=== PATIENT | male | born 1985 | race African-American/Black ===

== ENCOUNTER 2021-01-06 11:34 | Emergency (ER) | payer OTHER, SELFPAY ==
--- NOTE | ~2021-01-06 | XR_ITS ---
EXAMINATION: XR CHEST CLINICAL INFORMATION: Cough COMPARISON: March 01, 2018 TECHNIQUE: AP portable view of the chest was obtained. FINDINGS: No significant abnormality is noted involving the heart, lungs, mediastinum, bony thorax or soft tissues. XR/XR chest 1V IMPRESSION: No acute disease.
[2021-01-06 11:41] VITALS: BP 135/86; PULSE 74; RESP 18; TEMP 37.1; O2SAT 99; BMI 44.1
--- NOTE | 2021-01-06 12:41 | ED.GENADULT ---
HPI - General Adult General Chief complaint: General Medical Stated complaint: flu like symptoms Time Seen by Provider: 01/06/21 11:50 Source: patient Mode of arrival: ambulatory Limitations: no limitations History of Present Illness HPI narrative: 35 y/o male presenting with 1 week of feeling unwell. He reports fatigue, generalized weakness, headaches, & dry cough. He had a negative COVID test at the start of his symptoms. He works for the [email or web address] and has had sick contacts but none with known COVID-19. He denies SOB, chest pain, difficulty breathing, abdominal pain, N/V/D. His appetite is poor. MD complaint: COVID symptoms Onset (ago): week(s) (1) Location: head, chest and back Radiation: non-radiation Severity: moderate Quality: aching Pain Consistency: constant Relieving factors: medication and rest Exacerbating factors: movement Associated symptoms: cough, fever/chills, headaches, loss of appetite and malaise Treatments prior to arrival: none Related Data Allergies Allergy/AdvReac Type Severity Reaction Status Date / Time SEASONAL ALLERGIES Allergy Severe ASTHMA Uncoded 07/29/20 16:22 REACTION DIFFI BREATHING. Shellfish Allergy Severe THROAT Uncoded 07/29/20 16:22 SWELLING Review of Systems Review of Systems: Constitutional: No Fever, +Chills ENT/Mouth: + sore throat (dry, scratchy), No Rhinorrhea, No Swallowing Difficulty Eyes: No Eye Pain, No Swelling, No Redness Cardiovascular: No Chest Pain, No SOB, No Orthopnea, No Edema Respiratory: + Cough, No Sputum, No Wheezing, No dyspnea Gastrointestinal: No Nausea, No Vomiting, No Diarrhea, No abdominal Pain, No Hematochezia, No Melena Genitourinary: No Dysuria, No Urinary Frequency, No Hematuria Musculoskeletal: + joint pain, + Myalgias Skin: No Skin Lesions, No rash Neuro: + Weakness, No Numbness, No Dizziness, + Headache Psych: No Anxiety/Panic, No Depression Heme/Lymph: No Bruising, No Lymphadenopathy Endocrine: No Polyuria, No Polydipsia PMFSH Past Medical History Attestation statement: The following information was validated with the patient. Medical History Asthma Social History Social History Alcohol intake: never Smoking Status: Current some day smoker Use of substances other than those prescribed or required for medical reasons: No Advance Directives: No Advance Directives Information Provided: No Physical Exam Vital Signs: Vital Signs: Last Vital Signs Temp 98.8 F 01/06/21 11:41 Pulse 74 01/06/21 11:41 Resp 18 01/06/21 11:41 BP 135/86 01/06/21 11:41 Pulse Ox 99 01/06/21 11:41 Body Mass Index 44.1 Appearance: Alert. Oriented X3. No acute distress. Eyes: Pupils equal, round and reactive to light. ENT: Pharynx normal. Neck: Normal inspection. Neck supple. CVS: Normal heart rate and rhythm. Pulses normal. Respiratory: No respiratory distress. Breath sounds normal. Abdomen: Obese, soft and non-tender. +BS x4 Skin: Skin warm and dry. Normal skin color. Normal skin turgor. No rashes. Extremities: No lower extremity edema. Neuro: Oriented X 3. No motor deficit. No sensory deficit. Course Course Course Narrative: 35 y/o male with history of asthma and obesity presents with 1 week of COVID/Flu-like symptoms. He is non-toxic appearing with normal VS. Lungs are clear. Will get CXR and swab for COVID/Flu/RSV. Reevaluation(s) Reevaluation #1: CXR and Viral PCR negative. Patient's symptoms likely due to another viral etiology. He is stable for discharge. He will follow up with his doctor next week. Medical Decision Making Lab Data Labs: Lab Results 01/06/21 Range/Units 12:34 Coronavirus (PCR) NEGATIVE (Negative) Influenza Type A (PCR) NEGATIVE (Negative) Influenza Type B (PCR) NEGATIVE (Negative) RSV RNA Qual (PCR) NEGATIVE (Negative) Discharge Plan Discharge Clinical Impression: Acute viral syndrome Patient Disposition: Home, Self-Care Instructions: Viral Syndrome (ED) Additional Instructions: Your chest x-ray today was negative. You were negative for COVID-19, Flu and RSV. Recommend supportive care with rest, staying hydrated and taking over the counter cold/flu medications as needed for your symptoms. Follow up with your doctor next week.
[2021-01-06 13:29] LABS: Influenza A PCR NEGATIVE (Negative); Influenza B PCR NEGATIVE (Negative); Resp Syncy Virus RNA Qual PCR NEGATIVE (Negative); SARS COV2 PCR INHOUSE NEGATIVE (Negative)
== END 2021-01-06 14:05 | disposition home or self-care (01) ==
PROVIDERS: Physician Assistant; Emergency Provider Emergency Medicine
DX: B34.9 Viral infection, unspecified (principal); Z20.822 Contact with and (suspected) exposure to COVID-19; R05 Cough; J45.909 Unspecified asthma, uncomplicated; F17.200 Nicotine dependence, unspecified, uncomplicated
CPT/HCPCS: 0241U; 36415; 71045; 99283; 99284

== ENCOUNTER 2025-08-10 13:51 | Emergency (ER) | payer OTHER, SELFPAY ==
[2025-08-10 14:02] VITALS: BP 136/77; PULSE 80; RESP 16; TEMP 36.6; O2SAT 98; BMI 38.1
--- NOTE | 2025-08-10 14:03 | ED.GENADULT ---
HPI - General Adult General Chief complaint: Urogenital-Male Stated complaint: irritation in groin area Time Seen by Provider: 08/10/25 16:45 Source: patient Mode of arrival: ambulatory Limitations: no limitations History of Present Illness ED Provider: Dr. Tee [facility] narrative: 40-year-old male presented hospital today for penile rash. Patient stated it is going for a week Does have swelling on the foreskin. He states pruritic in nature. He has been trying hydrocortisone cream without any alleviation. Patient stated that it has been increasingly red and painful to touch. No history of diabetes in the past. Related Data Previous Rx's ?Medication ?Instructions ?Recorded clotrimazole 1 % topical cream 1 appl topical BID 2 weeks #30 08/10/25 grams sulfamethoxazole 800 1 tab PO Q12H 7 days #14 tabs 08/10/25 mg-trimethoprim 160 mg tablet (Bactrim DS) Allergies Allergy/AdvReac Type Severity Reaction Status Date / Time SEASONAL ALLERGIES Allergy Severe ASTHMA Uncoded 08/10/25 14:04 REACTION DIFFI BREATHING. Shellfish Allergy Severe THROAT Uncoded 08/10/25 14:04 SWELLING Review of Systems Review of Systems: Pertinent review of systems as mentioned in [facility]. All other system otherwise negative. [facility] Past Medical History [facility] Narrative: Medical history as mentioned in [facility] Medical History Asthma Social History Social History Alcohol intake: never Smoked in Last 30 Days: Yes Substance Use Type: Marijuana Advance Directives: No Advance Directives Information Provided: No Do you have a plan to hurt others: No Plan Physical Exam ED Exam Exam: General: Pleasant, no distress, interacting appropriately Head: Normacephalic, atraumatic ENT: oral mucosa moist, neck supple, no tracheal deviation : Patient does have pruritic rash on examination broken skin of swelling and erythema around the foreskin of the penis and underneath on the anterior scrotum. No sign of fluctuant mass palpated. No sign of Rosalind's gangrene on the perineal area. No signs of crepitus palpated on exam. There is some thrush appearing substance over the penis. Skin: Warm and dry Psychiatric: Appropriate mood and thoughts Vital Signs: Vital Signs - 24 hr 08/10/25 14:02 08/10/25 16:36 Temperature 97.8 F 97.9 F Pulse Rate 80 75 Respiratory Rate 16 16 Blood Pressure 136/77 135/81 Pulse Oximetry 98 99 Oxygen Delivery Method Room Air Room Air BMI result Body Mass Index 38.1 Course Course Course Narrative: Rapid medical examination performed in triage by Kerline Villatoro PA-C. Patient is a 40 year old assigned male at presenting to the emergency department with a groin rash and dysuria. Detailed physical exam and review of systems are deferred to the primary school teacher. Labs ordered. Patient placed back in the waiting room pending room availability and results. Medical Decision Making Medical Decision Making [facility] Narrative: Patient on patient's history and my exam. I suspect patient likely had balanitis from a fungal infection. He then developed cellulitis afterward. From itching. We will plan to start patient on a course of Bactrim, we will plan to prescribe some clotrimazole cream for the patient to use. Instruct to keep his penis clean and dry for the next couple of weeks. And instruct him to have abstinence for the next couple of weeks to allow the skin to heal. Patient agrees and understands this plan all questions were addressed. No sign of leukocytosis on lab work. I have low suspicion for Rosalind gangrene. Return precautions did provided the patient if infection gets worse despite medications. Differential Diagnosis Differential Diagnoses: The differential diagnosis associated with the presentation includes Cellulitis, balanitis, Rosalind's gangrene Lab Data [facility] Lab Attestation statement: I reviewed the patient's lab results. 08/10/25 14:41 08/10/25 14:41 Labs: Lab Results 08/10/25 Range/Units 14:41 WBC 9.3 (4.8-10.8) X10*3/uL RBC 5.31 (4.60-5.80) X10*6/uL Hgb 15.9 (14.0-18.0) g/dl Hct 47.2 (42.0-52.0) % MCV 88.9 (80.0-98.0) fL MCH 29.9 (27.0-33.0) pg MCHC 33.7 (31.0-36.0) g/dl RDW 13.8 (11.0-16.0) % Plt Count 284 (160-400) X10*3/uL MPV 9.9 (9.4-12.4) fL Immature Gran % (Auto) 0.2 (0.0-0.4) % Neut % (Auto) 88.7 H (45-73) % Lymph % (Auto) 8.5 L (20-40) % [place] % (Auto) 1.7 L (2-11) % Eos % (Auto) 0.8 (0-4) % Baso % (Auto) 0.1 (0-2) % Lymph # (Auto) 0.8 L (1.2-4.9) X10*3/uL [place] # (Auto) 0.2 (0.1-1.2) X10*3/uL Eos # (Auto) 0.1 (0.0-0.4) X10*3/uL Baso # (Auto) 0.0 (0.0-0.2) X10*3/uL Abs Immat Gran (auto) 0.02 (0.00-0.03) X10*3/uL Absolute Neuts (auto) 8.3 (2.0-8.3) x10*3/uL Absolute Nucleated RBC 0.000 (0.0-0.012) X10*3/uL Nucleated RBC % (auto) 0.0 (0.0-0.2) /100WBC ESR 13 (0-15) MM/HR Sodium 141 (135-145) mmol/L Potassium 3.8 (3.3-5.1) mmol/L Chloride 104 (96-108) mmol/L Carbon Dioxide 26 (22-29) mmol/L Anion Gap 15 (12-20) BUN 9 (9-16) mg/dL Creatinine 0.75 (0.5-1.4) mg/dL Estim Creat Clear Calc 166.9 Estimated GFR > 60 Random Glucose 154 H (60-115) mg/dL Calcium 9.5 (8.4-10.2) mg/dL Total Bilirubin 0.4 (0.0-1.0) mg/dL AST 22 (5-37) U/L ALT 29 (0-40) U/L Alkaline Phosphatase 56 (39-117) U/L C-Reactive Protein 3.60 H (< or = 0.50) mg/dL Total Protein 8.2 H (6.5-8.0) g/dL Albumin 4.9 (3.5-5.0) g/dL Prescription Management I considered prescription management with: Antibiotic Discharge Plan Discharge Clinical Impression: Acute balanitis due to infection Cellulitis Qualifiers: Site of cellulitis: unspecified site Qualified Code(s): L03.90 - Cellulitis, unspecified Patient Disposition: Home, Self-Care Instructions: Cellulitis (ED), Balanitis (ED) Additional Instructions: Keep your genital area clean and dry. Use the antifungal cream. Take the antibiotic as instructed. If this get worst return to the ED despite medications. Prescriptions: New clotrimazole 1 % cream 1 appl topical BID 14 Days Qty: 30 0RF sulfamethoxazole-trimethoprim [Bactrim DS] 800-160 mg tablet 1 tab PO Q12H 7 Days Qty: 14 0RF Print Language: Thai
[2025-08-10 14:45] LABS: MANUAL DIFF FLAG NO
[2025-08-10 14:49] LABS: Hematocrit 47.2 % (42.0-52.0); Hemoglobin 15.9 g/dl (14.0-18.0); Imm Gran Abs Auto 0.02 X10*3/uL (0.00-0.03); Imm Gran Pct Auto 0.2 % (0.0-0.4); Lymphocytes Absolute Auto 0.8 X10*3/uL (1.2-4.9); Mean Corpuscular HGB Conc 33.7 g/dl (31.0-36.0); Mean Corpuscular Hemoglobin 29.9 pg (27.0-33.0); Mean Corpuscular Volume 88.9 fL (80.0-98.0); NRBC Abs Auto 0.000 X10*3/uL (0.0-0.012); NRBC Pct Auto 0.0 /100WBC (0.0-0.2); Platelet Count 284 X10*3/uL (160-400); Red Blood Count 5.31 X10*6/uL (4.60-5.80); White Blood Count 9.3 X10*3/uL (4.8-10.8)
[2025-08-10 15:05] LABS: Alanine Aminotransferase 29 U/L (0-40); Albumin Level 4.9 g/dL (3.5-5.0); Alkaline Phosphatase 56 U/L (39-117); Anion Gap 15 (12-20); Aspartate Amino Transferase 22 U/L (5-37); Blood Urea Nitrogen 9 mg/dL (9-16); Calcium 9.5 mg/dL (8.4-10.2); Carbon Dioxide 26 mmol/L (22-29); Chloride 104 mmol/L (96-108); Creatinine Clr Calc Pharmacy 166.9; Estimated Glomerular Filt Rate > 60; Potassium 3.8 mmol/L (3.3-5.1); Sodium 141 mmol/L (135-145); Total Protein 8.2 g/dL (6.5-8.0)
[2025-08-10 16:36] VITALS: BP 135/81; PULSE 75; RESP 16; TEMP 36.6; O2SAT 99
--- NOTE | 2025-08-10 17:07 | PC.NURSE ---
Patient is a 40 year old male presenting to the emergency department with a groin rash and dysuria for the past week. Respirations even and non-labored. Abdomen soft, non-tender with positive bowel sounds.
[2025-08-10 17:29] VITALS: BP 135/81; PULSE 75; RESP 16; TEMP 36.6; O2SAT 99
== END 2025-08-10 17:30 | disposition home or self-care (01) ==
PROVIDERS: Physician Assistant Medical; Emergency Provider Student in an Organized Health Care Education/Training Program
DX: N48.1 Balanitis (principal); R10.30 Lower abdominal pain, unspecified; R21 Rash and other nonspecific skin eruption; Z79.899 Other long term (current) drug therapy
CPT/HCPCS: 36415; 80053; 85025; 85652; 86140; 99283; 99284